=== PATIENT | male | born 1980 | race Caucasian/White ===

== ENCOUNTER 2018-11-12 23:59 | Emergency (ER) | payer MEDICAID ==
[~2018-11-12] VITALS: Ht 180.3 cm; Wt 81.6 kg
--- NOTE | 2018-11-13 00:30 | NUR ---
pt stated he cut his right inner hand by the right thumb opening a can of tuna the cut is than 1cm don't know when he had a tetanus shot teaching given denies pain wige at his side
[2018-11-13] MEDS ORDERED: TDAP DIPH,PERTUSS,TET VAC/PF 0.5 ML DISP.SYRIN IM ONE ×2 (00:45→00:48)
[2018-11-13] MEDS ORDERED: LET TOPICAL SOLUTION 8 ML UDC TP ONE (00:45)
[2018-11-13] MEDS ORDERED: LIDOCAINE 4% TOPICAL 50 ML BOTTLE ONE (00:47)
--- NOTE | 2018-11-13 00:50 | NUR ---
was med time one with tetanus shot anna well
--- NOTE | 2018-11-13 01:30 | NUR ---
site was bonded with glue by md janneth castillo well site was cleansed and irrigated before
--- NOTE | 2018-11-13 01:45 | NUR ---
pt discharge to home with condition remains stable without incident discharge instructions given voiced his understanding well
[2018-11-13 02:05] VITALS: BP 132/80
== END 2018-11-13 01:45 | disposition home or self-care (01) ==
LOC: ER 23:59
DX: S61.412A Laceration without foreign body of left hand, initial encounter (principal); W26.8XXA Contact with other sharp object(s), not elsewhere classified, initial encounter; Y93.89 Activity, other specified; Y92.89 Other specified places as the place of occurrence of the external cause; Y99.8 Other external cause status
CPT/HCPCS: 90715; A4663